=== PATIENT | female | born 1960 | race Caucasian/White ===

== ENCOUNTER → 2016-06-03 | Outpatient (CLI) | payer OTHER, BC ==
[~2016-06-03] MED LIST: AMIT50TA3 PO; CETI10TA20 PO; MONT10TA21 PO; PARO20TA57 PO; PROP80CA39 PO; TRAM-25 PO; VENL37.52 PO
--- NOTE | 2016-06-03 11:10 | Diagnostic Imaging Report ---
EXAMINATION: Left knee, 3 views. Right knee, 3 views. COMPARISON: November 09, 2014. HISTORY: 55-year-old female, bilateral knee pain. FINDINGS: There is no identified right knee joint effusion. There is a potential small left knee joint effusion. There are degenerative-type enthesophytes at the insertions of the distal quadriceps tendons as well as the origins and insertions of the patellar tendons. This is more prominent on the left. There is moderate patellofemoral joint space loss on the left with tiny patellofemoral compartment osteophytes. The right patellofemoral compartment is not significantly narrowed. There is moderate medial compartment joint space loss bilaterally. There is no identified acute fracture. Multiple areas of punctate attenuation likely relate to film artifact. IMPRESSION: 1. Moderate medial and patellofemoral compartment osteoarthritis of the left knee with probable small left knee joint effusion. 2. Moderate medial compartment osteoarthritis of the right knee. 3. Degenerative-type patellar enthesopathy. Dictated by: Dictated on workstation # [id number]
== END ==
LOC: RAD 09:50
PROVIDERS: ATTEND Nurse Practitioner Family
DX: M25.561 Pain in right knee (principal); M25.562 Pain in left knee; M17.0 Bilateral primary osteoarthritis of knee

== ENCOUNTER 2016-07-19 15:00 | Outpatient (RCR) | payer OTHER, BC | END 2016-07-29 16:18 | disposition home or self-care (01) | LOC: PT 15:00 | PROVIDERS: ATTEND Nurse Practitioner Family | DX: G89.11 Acute pain due to trauma (principal); M25.561 Pain in right knee; W01.198D Fall on same level from slipping, tripping and stumbling with subsequent striking against other object, subsequent encounter; Y99.0 Civilian activity done for income or pay ==

== ENCOUNTER → 2016-07-19 | Outpatient (CLI) | payer BC, OTHER | LOC: LAB 15:41 | PROVIDERS: ATTEND Family Medicine | DX: E03.9 Hypothyroidism, unspecified (principal) | CPT/HCPCS: 36415; 84443 ==